=== PATIENT | female | born 1970 | race American Indian/Alaskan Native ===

== ENCOUNTER → 2017-07-12 | Outpatient (CLI) | payer OTHER ==
--- NOTE | ~2017-07-12 | EXE ---
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 Angioplasty as teenager Medications: Statin Allergies: No known drug allergies Procedure The patient underwent an Exercise Stress Test using the Erick Protocol. Blood pressure, heart rate, and EKG were monitored. An Echocardiogram was performed by aerial survey technician in four stages in quad fashion. At peak stress, four selected images were obtained and placed side by side with resting images for comparison. Stress Test Details Stress Test: Exercise stress testing was performed using a Erick protocol. HR Resting HR: 70 bpm Max Heart Rate (APMHR): 175 bpm Max HR Achieved: 162 bpm Target HR (85% APMHR): 148 bpm % of APMHR: 92 Recovery HR: 81 bpm HR response to stress: Normal HR response to stress BP Resting BP: 115/79 mmHg Max BP: 140/80 mmHg Recovery BP: 110/73 mmHg ECG Resting ECG: Sinus Rhythm [facility] [address] [place] [address] STRESS ECHOCARDIOGRAM Name: MARLENYARDEN Room #: REG [facility]#: [id number] Admission: 07/12/17 Attend Phys: Antonino Leal Discharge: Date of : 74 Date of Service: 07/12/17 1524 Report #: [id number] Stress ECG: Sinus Tachycardia Arrhythmia: None Recovery ECG: Sinus Rhythm Clinical Reason for Termination: Moderate fatigue Stress Symptoms: Leg pain, fatigue arms. Short of breath Exercise duration: 9 min 15 sec Highest Stage Achieved: Stage 4: 4.2 mph at 16% grade. Exercise capacity: 10.70 METs Stress ECG Conclusion 1. Subjectively negative for ischemia 2. Electrocardiographically negative for ischemia 3. Satisfactory functional capacity Pre-Stress Echo The resting Echocardiogram showed normal left ventricular contractility with an estimated Ejection Fraction of about 55%. Mild MR, trivial AI, tirvial TR. Post-Stress Echo The stress Echocardiogram showed normal left ventricular contractility with an estimated Ejection Fraction of about 65%. Normal augmentation of wall motion in all segments on post stress images. Clinical No clinical or ECG evidence for ischemia. Conclusion Clinical Response: Non-ischemic Exercise Capacity: Average Stress ECG Response: Non-ischemic Stress Echo Images: Non-ischemic 1. Low risk study Other Information Study Quality: Good [facility] [address] [place] [address] STRESS ECHOCARDIOGRAM Name: ARDEN FARMER Room #: REG [facility]#: [id number] Admission: 07/12/17 Attend Phys: Antonino Leal Discharge: Date of : 74 Date of Service: 07/12/17 1524 Report #: [id number] <Conclusion> 1. Low risk study <ELECTRONICALLY SIGNED> By: Antonino Sheppard MD 07/12/17 1524 1524 1524 Antonino Sheppard MD /INF
== END ==
LOC: CV 10:50
DX: I25.10 Atherosclerotic heart disease of native coronary artery without angina pectoris (principal); Q24.9 Congenital malformation of heart, unspecified; Z95.1 Presence of aortocoronary bypass graft